=== PATIENT | female | born 1965 ===

== ENCOUNTER 2020-01-05 19:07 | Outpatient (REF) | payer OTHER, SELFPAY ==
[2020-01-08 02:38] LABS: COVID-19 RT-PCR Result NEGATIVE (Negative)
== END 2020-01-05 19:27 ==
LOC: NCHCN 19:07
PROVIDERS: Visit Provider Nurse Practitioner Community Health
DX: Z11.59 Encounter for screening for other viral diseases (principal)
CPT/HCPCS: U0003